=== PATIENT | male | born 1935 | race Caucasian/White ===

== ENCOUNTER 2019-04-10 13:49 | Emergency (ER) | payer OTHER ==
[~2019-04-10] VITALS: Ht 175.3 cm; Wt 61.5 kg
[2019-04-10] MEDS ORDERED: METO25 PO (13:59)
[2019-04-10] MEDS ORDERED: ATOR40TA28 PO (13:59)
[2019-04-10] MEDS ORDERED: FAMO20 PO (13:59)
[2019-04-10] MEDS ORDERED: LORA10TA7 PO (13:59)
[2019-04-10] MEDS ORDERED: APIX5TAB PO (13:59)
[2019-04-10] MEDS ORDERED: LISI-661 PO (13:59)
[2019-04-10 14:10] LABS: BASOPHILS % (AUTO) 0.3 % (0.0-2.0); EOSINOPHILS % (AUTO) 1.8 % (1.0-6.0); HEMATOCRIT 38.1 % (41-53); LYMPHOCYTES # (AUTO) 1.2 K/uL (1.0-4.8); LYMPHOCYTES % (AUTO) 25.2 % (22.0-44.0); MEAN CORPUSCULAR HEMOGLOBIN 33.4 pg (26.0-34.0); MEAN CORPUSCULAR HGB CONC 34.1 G/dL (31.0-37.0); MEAN CORPUSCULAR VOLUME 98 fL (80-100); MONOCYTES # (AUTO) 0.4 K/uL (0.1-1.0); MONOCYTES % (AUTO) 9.3 % (2.0-9.0); NEUTROPHILS % (AUTO) 63.4 % (40.0-70.0); PLATELET COUNT (AUTO) 131 K/uL (150-450); RED BLOOD CELL COUNT(AUTO) 3.89 MIL/uL (4.50-5.90)
[2019-04-10 14:21] LABS: ANION GAP 4 mmol/L (8-16); CALCIUM, TOTAL 10.1 mg/dL (8.8-10.5); CARBON DIOXIDE 30 mmol/L (22-29); CHLORIDE 104 mmol/L (98-107); CREATININE 0.91 mg/dL (0.60-1.30); GLUCOSE,RANDOM 104 mg/dL (70-110); PROTHROMBIN TIME 10.8 SEC (9.4-11.6); SODIUM SERUM 138 mmol/L (136-145); UREA NITROGEN, BLOOD 23 mg/dL (7-18)
[2019-04-10 14:22] LABS: GLOMERULAR FILTR. RATE CALC > 60 mL/min (>60)
[2019-04-10 14:28] LABS: ALANINE AMINOTRANSFERASE 35 U/L (12-78); ALBUMIN 3.4 g/dL (3.4-5.0); ALKALINE PHOSPHATASE 114 U/L (46-116); ASPARTATE AMINOTRANSFERASE 28 U/L (15-37); BILIRUBIN,TOTAL 0.9 mg/dL (0.1-1.0); TOTAL PROTEIN, SERUM 6.3 g/dL (6.4-8.2)
[2019-04-10] MEDS ORDERED: ASPIRIN 81 MG CHEWABLE TABLET PO ONE (15:30)
[2019-04-10 17:30] VITALS: BP 135/76
== END 2019-04-10 18:30 | disposition short-term general hospital (02) ==
LOC: EMS 13:52
DX: I63.9 Cerebral infarction, unspecified (principal); R29.700 NIHSS score 0
CPT/HCPCS: 70496; 93005; 99291

== ENCOUNTER 2021-01-13 14:58 | Emergency (ER) | payer OTHER ==
[~2021-01-13] VITALS: Ht 177.8 cm; Wt 71.0 kg
[~2021-01-13 14:58] MED LIST: APIX5TAB PO; ATOR40TA28 PO; FAMO20 PO; LISI-893 PO; LORA10TA7 PO; METO25 PO
[2021-01-13] MEDS ORDERED: SODIUM CHLORIDE 0.9% 100 ML ONE (15:11)
[2021-01-13] MEDS ORDERED: IOVERSOL 350 MG/ML 100 ML VIAL ONE (15:11)
[2021-01-13] MEDS ORDERED: ACETAMINOPHEN 1000 MG/ISO-OSM 100 ML IV ONE (15:15)
[2021-01-13] MEDS ORDERED: ESCI20TA87 PO (15:23)
[2021-01-13] MEDS ORDERED: MULT-1203 PO (15:23)
[2021-01-13] MEDS ORDERED: CYAN250010 PO (15:23)
[2021-01-13] MEDS ORDERED: CHOL100044 PO (15:23)
[2021-01-13 15:24] LABS: BASOPHILS % (AUTO) 0.1 % (0.0-2.0); EOSINOPHILS % (AUTO) 1.1 % (1.0-6.0); HEMATOCRIT 41.6 % (41-53); HEMOGLOBIN 13.9 g/dL (13.5-17.5); LYMPHOCYTES # (AUTO) 0.6 K/uL (1.0-4.8); LYMPHOCYTES % (AUTO) 12.7 % (22.0-44.0); MEAN CORPUSCULAR HEMOGLOBIN 33.1 pg (26.0-34.0); MEAN CORPUSCULAR HGB CONC 33.5 G/dL (31.0-37.0); MEAN CORPUSCULAR VOLUME 99 fL (80-100); MONOCYTES # (AUTO) 0.4 K/uL (0.1-1.0); MONOCYTES % (AUTO) 8.7 % (2.0-9.0); NEUTROPHILS # (AUTO) 3.4 K/uL (1.8-7.7); NEUTROPHILS % (AUTO) 77.4 % (40.0-70.0); RED BLOOD CELL COUNT(AUTO) 4.21 MIL/uL (4.50-5.90); RED CELL DISTRIBUTION WIDTH 13.2 % (11.5-14.5)
[2021-01-13 15:34] LABS: ANION GAP 6 mmol/L (8-16); CARBON DIOXIDE 29 mmol/L (22-29); CHLORIDE 104 mmol/L (98-107); CREATININE 1.01 mg/dL (0.60-1.30); GLOMERULAR FILTR. RATE CALC > 60 mL/min (>60); GLUCOSE,RANDOM 96 mg/dL (70-110); POTASSIUM 4.3 mmol/L (3.5-5.1); SODIUM SERUM 139 mmol/L (136-145); UREA NITROGEN, BLOOD 13 mg/dL (7-18)
[2021-01-13 15:36] LABS: PLATELET COUNT (AUTO) 100 K/uL (150-450)
[2021-01-13 15:40] LABS: ALANINE AMINOTRANSFERASE 30 U/L (12-78); ALKALINE PHOSPHATASE 150 U/L (46-116); ASPARTATE AMINOTRANSFERASE 34 U/L (15-37); BILIRUBIN,TOTAL 0.9 mg/dL (0.1-1.0); TOTAL PROTEIN, SERUM 6.4 g/dL (6.4-8.2)
[2021-01-13 15:44] LABS: CALCIUM, TOTAL 10.1 mg/dL (8.8-10.5); INR 1.2 (0.9-1.1); PROTHROMBIN TIME 12.4 SEC (9.4-11.6)
[2021-01-13 16:06] LABS: COVID AG,FIA SOURCE NASOPHARYNGEAL
[2021-01-13 16:11] LABS: LACTIC ACID 2.1 mmol/L (0.4-2.0)
[2021-01-13 16:20] LABS: APPEARANCE,URINE CLOUDY (CLEAR); BILIRUBIN,URINE NEGATIVE (NEGATIVE); GLUCOSE, URINE (UA) NEGATIVE (NEGATIVE); KETONES,URINE NEGATIVE (NEGATIVE); LEUKOCYTE ESTERASE ,URINE NEGATIVE (NEGATIVE); NITRATE,URINE NEGATIVE (NEGATIVE); OCCULT BLOOD,URINE NEGATIVE (NEGATIVE); PROTEIN,URINE NEGATIVE (NEGATIVE); UROBILINOGEN,URINE 0.2 mg/dL (<=1.0)
[2021-01-13 18:35] VITALS: BP 107/69
== END 2021-01-13 19:26 | disposition designated cancer center or children's hospital (05) ==
LOC: EMS 15:00
DX: I63.9 Cerebral infarction, unspecified (principal); I48.91 Unspecified atrial fibrillation; I10 Essential (primary) hypertension; Z79.899 Other long term (current) drug therapy; Z20.822 Contact with and (suspected) exposure to COVID-19
CPT/HCPCS: 36415; 70450; 70496; 71045; 80053; 81003; 82962; 83605; 84484; 85025; 85610; 87426; 93005; 96374; 99291; J0131; J7050; Q9967

== ENCOUNTER 2023-10-20 07:25 | Inpatient (IN) | payer OTHER ==
[~2023-10-20] VITALS: Ht 170.2 cm; Wt 78.6 kg
[~2023-10-20 07:25] MED LIST changes: +CHOL25TA4 PO; +CYAN250010 PO; +ESCI20TA87 PO; -FAMO20 PO; -LORA10TA7 PO; -METO25 PO; +MULT-1203 PO
[2023-10-20] MEDS ORDERED: DILTIAZEM HCL 5 MG/ML 5 ML VIAL IVP ONE (07:45)
[2023-10-20] MEDS ORDERED: ACETAMINOPHEN 1000 MG/ISO-OSM 100 ML IV ONE (07:45)
[2023-10-20 07:48] LABS: ABG BASE EXCESS 1.1 mmol/L (-2.0-3.0); ABG HCO3 23.9 mmol/L (22.0-26.0); ABG METHEMOGLOBIN 0.9 % (0.0-1.5); ABG OXYHEMOGLOBIN 89.3 % (94.0-100.0); ABG PCO2 63 mmHg (35-45); ABG PH 7.265 (7.35-7.450); ABG TOTAL HEMOGLOBIN 15.1 G/dL (12.0-18.0); PO2, ARTERIAL BG 70.5 mmHg (71.0-79.0); SOURCE, BLOOD GAS ARTERIAL; TEMPERATURE, FAHRENHEIT, BG 99.2 FAHREN (96.0-98.6)
[2023-10-20 07:49] LABS: ABG A-A DIFF O2 578.3 mmHg (10-20.0); ALLEN TEST, BLOOD GAS Positive; O2 DEVICE,BLOOD GAS NON REBREATHER (ROOM AIR); SITE, BLOOD GAS SCALP
[2023-10-20 08:00] VITALS: PULSE 108; PULSE 140; RESP 19; RESP 33; O2SAT 91; O2SAT 92
[2023-10-20 08:14] LABS: BASOPHILS % (AUTO) 0.4 % (0.0-2.0); EOSINOPHILS % (AUTO) 0.1 % (1.0-6.0); HEMATOCRIT 42.9 % (41-53); HEMOGLOBIN 14.5 g/dL (13.5-17.5); LYMPHOCYTES # (AUTO) 0.5 K/uL (1.0-4.8); LYMPHOCYTES % (AUTO) 4.7 % (22.0-44.0); MEAN CORPUSCULAR HEMOGLOBIN 33.1 pg (26.0-34.0); MEAN CORPUSCULAR HGB CONC 33.9 G/dL (31.0-37.0); MEAN CORPUSCULAR VOLUME 98 fL (80-100); MONOCYTES # (AUTO) 0.3 K/uL (0.1-1.0); MONOCYTES % (AUTO) 2.3 % (2.0-9.0); NEUTROPHILS # (AUTO) 10.4 K/uL (1.8-7.7); PLATELET COUNT (AUTO) 181 K/uL (150-450); RED BLOOD CELL COUNT(AUTO) 4.39 MIL/uL (4.50-5.90); RED CELL DISTRIBUTION WIDTH 13.5 % (11.5-14.5); WHITE BLOOD COUNT (AUTO) 11.2 K/uL (4.5-11.0)
[2023-10-20 08:17] LABS: NEUTROPHILS % (AUTO) 92.5 % (40.0-70.0)
[2023-10-20 08:34] LABS: COVID AG,FIA SOURCE NASAL SWAB
[2023-10-20 08:58] LABS: SARS-COV2 (COVID) ANTIGEN,FIA Negative (Negative)
[2023-10-20 08:59] LABS: INFLUENZA TYPE A NEGATIVE FOR TYPE A (NEGATIVE); INFLUENZA TYPE B NEGATIVE FOR TYPE B (NEGATIVE); RESPIRATORY SYNCYTIAL VIRS,FIA NEGATIVE (Negative)
[2023-10-20] MEDS ORDERED: AZITHROMYCIN 500 MG/NS 250 ML IV ONE (09:00)
[2023-10-20] MEDS ORDERED: CefTRIAXone 1 GM/DEXTROSE 50 ML IV ONE (09:00)
[2023-10-20 09:07] LABS: ANION GAP 8 mmol/L (8-16); CALCIUM, TOTAL 10.2 mg/dL (8.8-10.5); CARBON DIOXIDE 30 mmol/L (22-29); CHLORIDE 102 mmol/L (98-107); CREATININE 1.19 mg/dL (0.60-1.30); GLOMERULAR FILTR. RATE CALC 58 mL/min (>60); GLUCOSE,RANDOM 118 mg/dL (70-110); POTASSIUM 3.9 mmol/L (3.5-5.1); SODIUM SERUM 140 mmol/L (136-145); UREA NITROGEN, BLOOD 14 mg/dL (7-18)
[2023-10-20 09:08] LABS: TROPONIN I-HIGH SENSITIVITY 69 ng/L (<76)
[2023-10-20 09:12] LABS: ALANINE AMINOTRANSFERASE 184 U/L (12-78); ALBUMIN 2.4 g/dL (3.4-5.0); ALKALINE PHOSPHATASE 223 U/L (46-116); ASPARTATE AMINOTRANSFERASE 161 U/L (15-37); BILIRUBIN,TOTAL 1.3 mg/dL (0.1-1.0); TOTAL PROTEIN, SERUM 6.4 g/dL (6.4-8.2)
[2023-10-20 09:13] LABS: LACTIC ACID 3.3 mmol/L (0.4-2.0)
[2023-10-20] MEDS ORDERED: SODIUM CHLORIDE 0.9% 1,450 ML IV ONE (09:15)
[2023-10-20] MEDS ORDERED: ACETAMINOPHEN 325 MG TABLET PO PRN ×2 (09:45→17:45)
[2023-10-20] MEDS ORDERED: ONDANSETRON HCL 4 MG/2 ML VIAL IVP PRN ×2 (09:45→17:45)
[2023-10-20 10:00] VITALS: PULSE 106; RESP 20; O2SAT 96
[2023-10-20] MEDS ORDERED: SODIUM CHLORIDE 0.9% 550 ML IV SCH (10:45)
[2023-10-20] MEDS ORDERED: SODIUM CHLORIDE 0.9% 550 ML IV ONE (11:00)
[2023-10-20 13:05] VITALS: PULSE 97; RESP 21; O2SAT 95
[2023-10-20 16:00] VITALS: BP 136/78; PULSE 78; RESP 22; TEMP 96.8
[2023-10-20] MEDS ORDERED: SODIUM CHLORIDE 0.9% 250 ML IV ONE (16:45)
[2023-10-20] MEDS: DOXYCYCLINE HYCLATE 100 MG in DEXTROSE 5%-WATER 100 ML IV SCH (17:18)
[2023-10-20] MEDS: LISINOPRIL 10 MG TABLET PO SCH (17:45)
[2023-10-20] MEDS ORDERED: 0.9% SODIUM CHLORIDE 10 ML SYRINGE IVP PRN (17:45)
[2023-10-20] MEDS ORDERED: MAGNESIUM HYDROXIDE SUSPENSION 30 ML UDCUP PO PRN (17:45)
[2023-10-20] MEDS: PANTOPRAZOLE SODIUM 40 MG/VIAL IVP SCH (17:52)
[2023-10-20 20:00] VITALS: BP 116/76; PULSE 86; RESP 29; TEMP 96.6
[2023-10-20] MEDS: APIXABAN 5 MG TABLET PO SCH (20:41)
[2023-10-20] MEDS: DOCUSATE SODIUM 100 MG CAPSULE PO SCH (20:41)
[2023-10-20] MEDS: HEPARIN SODIUM,PORCINE 5,000 UNITS/ML VIAL SQ SCH (20:41)
[2023-10-21] VITALS: BP 166/136; PULSE 96; RESP 22; TEMP 97.8
[2023-10-21 04:00] VITALS: BP 162/98; PULSE 90; RESP 23; TEMP 97
[2023-10-21 05:22] LABS: BASOPHILS % (AUTO) 0.1 % (0.0-2.0); EOSINOPHILS % (AUTO) 0.4 % (1.0-6.0); HEMATOCRIT 34.6 % (41-53); HEMOGLOBIN 11.8 g/dL (13.5-17.5); LYMPHOCYTES # (AUTO) 0.8 K/uL (1.0-4.8); LYMPHOCYTES % (AUTO) 9.1 % (22.0-44.0); MEAN CORPUSCULAR HEMOGLOBIN 33.4 pg (26.0-34.0); MEAN CORPUSCULAR HGB CONC 34.2 G/dL (31.0-37.0); MEAN CORPUSCULAR VOLUME 98 fL (80-100); MONOCYTES # (AUTO) 0.7 K/uL (0.1-1.0); MONOCYTES % (AUTO) 7.9 % (2.0-9.0); NEUTROPHILS # (AUTO) 7.5 K/uL (1.8-7.7); NEUTROPHILS % (AUTO) 82.5 % (40.0-70.0); PLATELET COUNT (AUTO) 114 K/uL (150-450); RED BLOOD CELL COUNT(AUTO) 3.53 MIL/uL (4.50-5.90); RED CELL DISTRIBUTION WIDTH 13.9 % (11.5-14.5); WHITE BLOOD COUNT (AUTO) 9.1 K/uL (4.5-11.0)
[2023-10-21 05:32] LABS: ANION GAP 5 mmol/L (8-16); CALCIUM, TOTAL 10.3 mg/dL (8.8-10.5); CARBON DIOXIDE 32 mmol/L (22-29); CHLORIDE 106 mmol/L (98-107); CREATININE 0.91 mg/dL (0.60-1.30); GLOMERULAR FILTR. RATE CALC > 60 mL/min (>60); GLUCOSE,RANDOM 103 mg/dL (70-110); POTASSIUM 5.3 mmol/L (3.5-5.1); SODIUM SERUM 143 mmol/L (136-145); UREA NITROGEN, BLOOD 16 mg/dL (7-18)
[2023-10-21] MEDS: DOXYCYCLINE HYCLATE 100 MG in DEXTROSE 5%-WATER 100 ML IV SCH ×2 (05:47→16:53)
[2023-10-21 08:00] VITALS: BP 127/85; PULSE 93; PULSE 98; RESP 23; TEMP 97.9
[2023-10-21] MEDS: LISINOPRIL 10 MG TABLET PO SCH (08:28)
[2023-10-21] MEDS: DOCUSATE SODIUM 100 MG CAPSULE PO SCH ×2 (08:28→22:05)
[2023-10-21] MEDS: APIXABAN 5 MG TABLET PO SCH ×2 (08:28→21:00)
[2023-10-21] MEDS: HEPARIN SODIUM,PORCINE 5,000 UNITS/ML VIAL SQ SCH ×2 (08:29→21:00)
[2023-10-21] MEDS: PANTOPRAZOLE SODIUM 40 MG/VIAL IVP SCH (08:29)
[2023-10-21] MEDS: CefTRIAXone SODIUM 2 GM in DEXTROSE 5%-WATER 50 ML IV SCH (08:30)
[2023-10-21 12:00] VITALS: BP 140/66; PULSE 106; PULSE 111; RESP 30; TEMP 97.8
[2023-10-21 16:00] VITALS: BP 157/105; PULSE 113; PULSE 121; RESP 18; TEMP 97.9
[2023-10-21 20:00] VITALS: BP 168/101; PULSE 120; RESP 33; TEMP 97.6
[2023-10-21] MEDS ORDERED: AMIODARONE HCL 150 MG in DEXTROSE 5%-WATER 97 ML IV ONE (20:15)
[2023-10-21] MEDS ORDERED: AMIODARONE HCL 360 MG in DEXTROSE 5%-WATER 242.8 ML IV ONE (20:30)
[2023-10-22] VITALS: BP 193/141; PULSE 114; RESP 32; TEMP 99.1
[2023-10-22] MEDS ORDERED: AMIODARONE HCL 540 MG in DEXTROSE 5%-WATER 239.2 ML IV ONE (02:30)
[2023-10-22 04:00] VITALS: BP 159/106; PULSE 125; RESP 20; TEMP 98.6
[2023-10-22 05:16] LABS: BASOPHILS % (AUTO) 0.1 % (0.0-2.0); EOSINOPHILS % (AUTO) 0.3 % (1.0-6.0); HEMATOCRIT 36.8 % (41-53); HEMOGLOBIN 12.8 g/dL (13.5-17.5); LYMPHOCYTES # (AUTO) 0.7 K/uL (1.0-4.8); LYMPHOCYTES % (AUTO) 7.3 % (22.0-44.0); MEAN CORPUSCULAR HEMOGLOBIN 33.8 pg (26.0-34.0); MEAN CORPUSCULAR HGB CONC 34.7 G/dL (31.0-37.0); MEAN CORPUSCULAR VOLUME 97 fL (80-100); MONOCYTES # (AUTO) 0.7 K/uL (0.1-1.0); MONOCYTES % (AUTO) 7.4 % (2.0-9.0); NEUTROPHILS # (AUTO) 8.2 K/uL (1.8-7.7); NEUTROPHILS % (AUTO) 84.9 % (40.0-70.0); PLATELET COUNT (AUTO) 135 K/uL (150-450); RED BLOOD CELL COUNT(AUTO) 3.78 MIL/uL (4.50-5.90); RED CELL DISTRIBUTION WIDTH 13.8 % (11.5-14.5); WHITE BLOOD COUNT (AUTO) 9.7 K/uL (4.5-11.0)
[2023-10-22 05:28] LABS: ANION GAP 5 mmol/L (8-16); CALCIUM, TOTAL 10.3 mg/dL (8.8-10.5); CARBON DIOXIDE 31 mmol/L (22-29); CHLORIDE 103 mmol/L (98-107); CREATININE 0.75 mg/dL (0.60-1.30); GLOMERULAR FILTR. RATE CALC > 60 mL/min (>60); GLUCOSE,RANDOM 130 mg/dL (70-110); POTASSIUM 4.3 mmol/L (3.5-5.1); SODIUM SERUM 139 mmol/L (136-145); UREA NITROGEN, BLOOD 17 mg/dL (7-18)
[2023-10-22] MEDS: METOPROLOL TARTRATE 25 MG TABLET PO SCH ×3 (05:37→20:45)
[2023-10-22 05:38] LABS: LACTIC ACID 1.3 mmol/L (0.4-2.0)
[2023-10-22] MEDS: DOXYCYCLINE HYCLATE 100 MG in DEXTROSE 5%-WATER 100 ML IV SCH ×2 (06:34→17:36)
[2023-10-22 08:00] VITALS: BP 175/85; PULSE 101; RESP 24; TEMP 99.3
[2023-10-22 08:32] LABS: ALANINE AMINOTRANSFERASE 103 U/L (12-78); ALBUMIN 2.2 g/dL (3.4-5.0); ALKALINE PHOSPHATASE 174 U/L (46-116); ASPARTATE AMINOTRANSFERASE 62 U/L (15-37); BILIRUBIN,TOTAL 0.6 mg/dL (0.1-1.0); TOTAL PROTEIN, SERUM 6.2 g/dL (6.4-8.2)
[2023-10-22] MEDS: PANTOPRAZOLE SODIUM 40 MG/VIAL IVP SCH (09:14)
[2023-10-22] MEDS: HEPARIN SODIUM,PORCINE 5,000 UNITS/ML VIAL SQ SCH ×2 (09:14→20:45)
[2023-10-22] MEDS: CefTRIAXone SODIUM 2 GM in DEXTROSE 5%-WATER 50 ML IV SCH (09:14)
[2023-10-22] MEDS: APIXABAN 5 MG TABLET PO SCH ×2 (09:15→20:45)
[2023-10-22] MEDS: LISINOPRIL 10 MG TABLET PO SCH (09:15)
[2023-10-22] MEDS: DOCUSATE SODIUM 100 MG CAPSULE PO SCH ×2 (09:15→20:45)
[2023-10-22 12:00] VITALS: BP 175/117; PULSE 95; RESP 20; TEMP 98.6
[2023-10-22 16:00] VITALS: BP 154/104; PULSE 89; RESP 24; TEMP 98.9
[2023-10-22 20:00] VITALS: BP 172/100; PULSE 94; RESP 23; TEMP 98.8
[2023-10-22] MEDS ORDERED: AMIODARONE HCL 750 MG in DEXTROSE 5%-WATER 485 ML IV SCH (20:30)
[2023-10-22] MEDS ORDERED: SODIUM CHLORIDE 0.9% 250 ML IV ONE (20:43)
[2023-10-22] MEDS ORDERED: HydrALAZINE HCL 20 MG/ML VIAL IVP PRN (21:30)
[2023-10-22 21:52] LABS: ABG BASE EXCESS 6.7 mmol/L (-2.0-3.0); ABG CARBOXYHEMOGLOBIN 1.1 % (0.0-1.5); ABG HCO3 28.6 mmol/L (22.0-26.0); ABG METHEMOGLOBIN 0.2 % (0.0-1.5); ABG OXYGEN CONTENT 18.5 mL/dL (15.0-23.0); ABG OXYGEN SATURATION 94.9 % (95.0-98.0); ABG OXYHEMOGLOBIN 93.7 % (94.0-100.0); ABG PCO2 64 mmHg (35-45); ABG PH 7.328 (7.35-7.450); ALLEN TEST, BLOOD GAS Positive; PO2, ARTERIAL BG 74.9 mmHg (71.0-79.0); SITE, BLOOD GAS RT RADIAL; SOURCE, BLOOD GAS ARTERIAL; TEMPERATURE, FAHRENHEIT, BG 98.8 FAHREN (96.0-98.6)
[2023-10-22 21:53] LABS: ABG A-A DIFF O2 78.7 mmHg (10-20.0); O2 DEVICE,BLOOD GAS CANNULA (ROOM AIR)
[2023-10-22] MEDS ORDERED: MORPHINE SULFATE 2 MG/ML SYRINGE IVP PRN (22:30)
[2023-10-22] MEDS ORDERED: MORPHINE SULFATE 2 MG/ML SYRINGE ONE (22:36)
[2023-10-23] VITALS (8 sets, daily range): BP systolic 66–168; BP diastolic 31–97; PULSE 69–106; RESP 20–25; TEMP 93.3–98.8; O2SAT 94–96
[2023-10-23] MEDS ORDERED: PHENYLEPHRINE 200 MG/D5%-WATER 250 ML IV PRN (04:30)
[2023-10-23 05:47] LABS: BASOPHILS % (AUTO) 0.2 % (0.0-2.0); EOSINOPHILS % (AUTO) 0.2 % (1.0-6.0); HEMATOCRIT 39.7 % (41-53); LYMPHOCYTES # (AUTO) 0.6 K/uL (1.0-4.8); LYMPHOCYTES % (AUTO) 2.9 % (22.0-44.0); MEAN CORPUSCULAR HEMOGLOBIN 33.1 pg (26.0-34.0); MEAN CORPUSCULAR HGB CONC 32.7 G/dL (31.0-37.0); MEAN CORPUSCULAR VOLUME 101 fL (80-100); MONOCYTES # (AUTO) 1.2 K/uL (0.1-1.0); MONOCYTES % (AUTO) 5.7 % (2.0-9.0); NEUTROPHILS # (AUTO) 18.7 K/uL (1.8-7.7); PLATELET COUNT (AUTO) 229 K/uL (150-450); RED BLOOD CELL COUNT(AUTO) 3.92 MIL/uL (4.50-5.90); RED CELL DISTRIBUTION WIDTH 14.8 % (11.5-14.5); WHITE BLOOD COUNT (AUTO) 20.5 K/uL (4.5-11.0)
[2023-10-23 06:08] LABS: BILIRUBIN,TOTAL 0.5 mg/dL (0.1-1.0); CALCIUM, TOTAL 10.6 mg/dL (8.8-10.5); CREATININE 1.22 mg/dL (0.60-1.30); POTASSIUM 5.3 mmol/L (3.5-5.1); TOTAL PROTEIN, SERUM 6.6 g/dL (6.4-8.2)
[2023-10-23 06:24] LABS: RBC MORPHOLOGY COMMENT ABNORMAL RBC MORPH
[2023-10-23] MEDS: DOXYCYCLINE HYCLATE 100 MG in DEXTROSE 5%-WATER 100 ML IV SCH (06:27)
[2023-10-23 07:59] LABS: TROPONIN I-HIGH SENSITIVITY 112 ng/L (<76)
[2023-10-23] MEDS ORDERED: NOREPINEPHRINE 8 MG/0.9 % NACL 250 ML IV PRN (09:00)
[2023-10-23] MEDS ORDERED: HydrALAZINE HCL 50 MG TABLET PEG SCH (09:00)
[2023-10-23] MEDS ORDERED: METOPROLOL TARTRATE 25 MG TABLET PEG SCH (09:00)
[2023-10-23] MEDS: CefTRIAXone SODIUM 2 GM in DEXTROSE 5%-WATER 50 ML IV SCH (09:07)
[2023-10-23] MEDS: APIXABAN 5 MG TABLET PO SCH (09:07)
[2023-10-23] MEDS: PANTOPRAZOLE SODIUM 40 MG/VIAL IVP SCH (09:07)
[2023-10-23] MEDS: DOCUSATE SODIUM 100 MG CAPSULE PO SCH (09:07)
[2023-10-23] MEDS: HEPARIN SODIUM,PORCINE 5,000 UNITS/ML VIAL SQ SCH (09:08)
[2023-10-23 09:32] LABS: ABG CARBOXYHEMOGLOBIN 1.2 % (0.0-1.5); ABG METHEMOGLOBIN 0.4 % (0.0-1.5); ABG OXYGEN CONTENT 17.7 mL/dL (15.0-23.0); ABG OXYGEN SATURATION 91.5 % (95.0-98.0); ABG TOTAL HEMOGLOBIN 13.9 G/dL (12.0-18.0); PO2, ARTERIAL BG 67.7 mmHg (71.0-79.0); SOURCE, BLOOD GAS ARTERIAL; TEMPERATURE, FAHRENHEIT, BG 92.2 FAHREN (96.0-98.6)
[2023-10-23 09:35] LABS: ABG PH 6.745 (7.35-7.450); ALLEN TEST, BLOOD GAS Positive; SITE, BLOOD GAS RT RADIAL
[2023-10-23 09:39] LABS: O2 DEVICE,BLOOD GAS BIPAP (ROOM AIR)
[2023-10-23] MEDS ORDERED: AMIODARONE HCL 200 MG TABLET PEG SCH (16:00)
[2023-10-23] MEDS ORDERED: MIDODRINE HCL 5 MG TABLET PEG SCH (16:00)
== END 2023-10-23 15:17 | DRG 871 ==
LOC: EMS 07:25 → ICU 11:50
PROVIDERS: ADMIT Internal Medicine; ATTEND Internal Medicine
PROC: 5A09357 Assistance with Respiratory Ventilation, Less than 24 Consecutive Hours, Continuous Positive Airway Pressure (ICD-10-PCS; principal; 2023-10-20)
PROC: 5A09357 Assistance with Respiratory Ventilation, Less than 24 Consecutive Hours, Continuous Positive Airway Pressure (ICD-10-PCS; 2023-10-23)
DX: A41.9 Sepsis, unspecified organism (principal); E43 Unspecified severe protein-calorie malnutrition; J18.9 Pneumonia, unspecified organism; J96.02 Acute respiratory failure with hypercapnia; G93.41 Metabolic encephalopathy; J96.01 Acute respiratory failure with hypoxia; I10 Essential (primary) hypertension; I48.0 Paroxysmal atrial fibrillation; D64.9 Anemia, unspecified; F03.90 Unspecified dementia, unspecified severity, without behavioral disturbance, psychotic disturbance, mood disturbance, and anxiety; R74.01 Elevation of levels of liver transaminase levels; Z20.822 Contact with and (suspected) exposure to COVID-19; R74.8 Abnormal levels of other serum enzymes; Z79.01 Long term (current) use of anticoagulants; Z79.899 Other long term (current) drug therapy; Z86.73 Personal history of transient ischemic attack (TIA), and cerebral infarction without residual deficits; Z95.3 Presence of xenogenic heart valve; Z68.27 Body mass index [BMI] 27.0-27.9, adult
CPT/HCPCS: 36600; 71045; 80048; 80053; 82140; 82805; 83605; 83880; 84443; 84484; 85025; 87040; 87081; 87420; 87804; 93005; 93306; 94660; 97163; 97530; 99291; C9113; J0131; J0282; J0360; J0456; J0696; J1644; J2270; J2370; J3490; J7030; J7050; J7060; Q9967; 36415-L1; 36415-TC